=== PATIENT | male | born 1955 ===

== ENCOUNTER 2018-03-11 08:20 | Emergency (ER) | payer OTHER ==
[2018-03-11 08:25] VITALS: BMI 24.0
[2018-03-11 08:27] VITALS: BP 155/95; PULSE 90; RESP 18; TEMP 98.9; O2SAT 98
--- NOTE | 2018-03-11 09:14 | C.PDOC ---
History Of Present Illness 62 y/o male presents to the ER complaining of mild low back pain which began after he lifted a box spring at work yesterday. Patient states that he was wearing a utility belt. Patient reports that he took 1 Advil at home, however he continues to have pain. He went back to work today and they told him to go to the ER. Denies having direct trauma, radiation of pain, sensory changes in legs, urinary retention, dysuria, and hematuria. Time Seen by Provider: 03/11/18 09:06 Chief Complaint (Nursing): Lower Extremity Problem/Injury History Per: Patient History/Exam Limitations: no limitations Onset/Duration Of Symptoms: Days Current Symptoms Are (Timing): Still Present Severity: Moderate Past Medical History Reviewed: Historical Data, Nursing Documentation, Vital Signs Vital Signs: Last Vital Signs Temp 98.9 F 03/11/18 08:25 Pulse 90 03/11/18 08:25 Resp 18 03/11/18 08:25 BP 155/95 H 03/11/18 08:25 Pulse Ox 98 03/11/18 12:38 - Medical History PMH: No Chronic Diseases Surgical History: No Surg Hx Family History: States: No Known Family Hx - Social History Hx Tobacco Use: Yes Hx Alcohol Use: Yes Hx Substance Use: No - Immunization History Hx Tetanus Toxoid Vaccination: No Hx Influenza Vaccination: No Hx Pneumococcal Vaccination: No Review Of Systems Except As Marked, All Systems Reviewed And Found Negative. Genitourinary: Negative for: Dysuria, Hematuria Musculoskeletal: Positive for: Back Pain (low back pain) Neurological: Negative for: Weakness, Numbness Physical Exam - Physical Exam Appears: Non-toxic, No Acute Distress Skin: Normal Color, Warm, Dry Head: Atraumatic, Normacephalic Eye(s): bilateral: Normal Inspection Nose: Normal Oral Mucosa: Moist Neck: Supple Chest: Symmetrical Cardiovascular: Rhythm Regular Respiratory: Normal Breath Sounds, No Rales, No Rhonchi, No Wheezing Back: No Vertebral Tenderness, Paraspinal Tenderness (mild paralumbar tenderness ) Neurological/Psych: Oriented x3, Normal Speech ED Course And Treatment O2 Sat by Pulse Oximetry: 98 (RA) Pulse Ox Interpretation: Normal Progress Note: Patient treated with Motrin PO. Patient has been discharged and instructed to follow up with PMD in 1-2 days. Disposition Counseled Patient/Family Regarding: Diagnosis, Need For Followup, Rx Given - Disposition Referrals: at [facility] [Outside] Disposition: HOME/ ROUTINE Disposition Time: 09:20 Condition: STABLE Additional Instructions: FOLLOW UP WITH YOUR DOCTOR IN 1-2 DAYS USE MEDICATION NEEDED RETURN TO ER IF SYMPTOMS WORSEN SEGUIMIENTO CON BUTT MDICO EN 1-2 MONIQUE USE MEDICAMENTOS SEGN SEA NECESARIO VOLVER A ER SI LOS SNTOMAS EMPEORAN Prescriptions: Ibuprofen [Motrin Tab] 600 mg PO Q6 PRN #30 tab PRN Reason: fever/pain Instructions: Low Back Pain (DC) Forms: [employer] (Macedonian), Work Excuse Print Language: FAROESE - Clinical Impression Clinical Impression: Low back pain - Scribe Statement The provider has reviewed the documentation as recorded by the Scribe Ean Russ Provider Attestation: All medical record entries made by the Scribe were at my direction and personally dictated by me. I have reviewed the chart and agree that the record accurately reflects my personal performance of the history, physical exam, medical decision making, and the department course for this patient. I have also personally directed, reviewed, and agree with the discharge instructions and disposition.
== END 2018-03-11 10:05 | disposition home or self-care (01) ==
LOC: C.ER 08:20
DX: M54.5 Low back pain (principal)